=== PATIENT | male | born 1980 | race Caucasian/White ===

== ENCOUNTER 2020-05-13 22:36 | Inpatient (IN) | payer OTHER ==
--- NOTE | 2020-05-13 23:28 | HP ---
COWS - Scale Resting Pulse: 1= IL 81-100 Sweatin=Flushed/Facial Moisture Restless Observation: 1= Difficult to Sit Still Pupil Size: 1= Pupils >than Normal Bone or Joint Aches: 4=Acute Joint/Muscle Pain Runny Nose/ Eye Tearin= Runny Nose/Eyes GI Upset > 30mins: 1= Stomach Cramp Tremor Observation: 4= Gross Tremor/Twitching Yawning Observation: 1= 1-2x During Session Anxiety or Irritability: 4=Extreme Anxiety Goose Flesh Skin: 0=Smooth Skin COWS Score: 21 CIWA Score - Admission Criteria [facility]AS[facility] Guidelines: Admission for Medically Managed Detox: Requires at least one of the followin. CIWA greater than 12 2. Seizures within the past 24 hours 3. Delirium tremens within the past 24 hours 4. Hallucinations within the past 24 hours 5. Acute intervention needed for co occurring medical disorder 6. Acute intervention needed for co occurring psychiatric disorder 7. Severe withdrawal that cannot be handled at a lower level of care (continued vomiting, continued diarrhea, abnormal vital signs) requiring intravenous medication and/or fluids 8. Admission [facility] Chief Complaint: Heroin withdrawal symptoms Allergies/Adverse Reactions: Allergies Allergy/AdvReac Type Severity Reaction Status Date / Time No Known Allergies Allergy Verified 05/13/20 23:27 History of Present Illness: 40 years old male witha long history of opioid dependence is seeking admission to detox. This is his first admission to [facility] and he reports that his last admission was at [facility]. He reports that he uses 20 bags daily. He denies medical history, psych. history and suicidal ideation at this time. He is employed as a laborer plumbing, lives alone in [place] and denies legal issues. He reports that he overdosed 5 months ago. Exam Limitations: No Limitations - Ebola screening Have you traveled outside of the country in the last 21 days: No Have you had contact with anyone from an Ebola affected area: No Have you been sick,other than usual withdrawal symptoms: No Do you have a fever: No - Review of Systems Constitutional: Chills, Loss of Appetite, Malaise, Night Sweats, Changes in sleep EENT: reports: Nose Congestion Respiratory: reports: No Symptoms reported Cardiac: reports: No Symptoms Reported GI: reports: Nausea, Poor Appetite, Poor Fluid Intake, Vomiting (x 2), Abdominal cramping : reports: No Symptoms Reported Musculoskeletal: reports: Muscle Pain Integumentary: reports: Dryness, Flushing Neuro: reports: Tremors Endocrine: reports: No Symptoms Reported Hematology: reports: No Symptoms Reported Psychiatric: reports: Mood/Affect Appropiate, Orientated x3, Agitated, Anxious Other Systems: Reviewed and Negative Patient History - Patient Medical History Hx Anemia: No Hx Asthma: No Hx Chronic Obstructive Pulmonary Disease (COPD): No Hx Cancer: No Hx Cardiac Disorders: No Hx Congestive Heart Failure: No Hx Hypertension: No Hx Hypercholesterolemia: No Hx Pacemaker: No HX Cerebrovascular Accident: No Hx Seizures: No Hx Dementia: No Hx Diabetes: No Hx Gastrointestinal Disorders: No Hx Liver Disease: No Hx Genitourinary Disorders: No Hx Sexually Transmitted Disorders: No Hx Renal Disease (ESRD): No Hx Thyroid Disease: No Hx Human Immunodeficiency Virus (HIV): No (Negative 2020) Hx Hepatitis C: No Hx Depression: No Hx Suicide Attempt: No (Denies suicidal ideation at this time) Hx Bipolar Disorder: No Hx Schizophrenia: No - Patient Surgical History Past Surgical History: No - PPD History Previous Implant?: Yes Documented Results: Negative w/o proof Implanted On Prior [facility] Admission?: No PPD to be Administered?: Yes - Reproductive History Patient is a Female of Child Bearing Age (11 -55 yrs old): No (Male) - Smoking Cessation Smoking history: Never smoked Have you smoked in the past 12 months: No Hx Chewing Tobacco Use: No Initiated information on smoking cessation: No - Substance & Tx. History Hx Substance Use: Yes Substance Use Type: Heroin, Marijuana Hx Substance Use Treatment: Yes ([facility].) - Substances abused Heroin Frequency: Daily Amount used: 20 bags Age of first use: 20 Date of last use: 05/13/20 Admission Physical Exam BHS - Vital Signs Vital Signs: Vital Signs - 24 hr 05/13/20 22:57 Temperature 98.3 F Pulse Rate 81 Respiratory 16 Rate Blood Pressure 142/81 - Physical General Appearance: Yes: Severe Distress, Tremorous, Irritable, Sweating, Anxious HEENTM: Yes: Within Normal Limits Respiratory: Yes: Lungs Clear, Normal Breath Sounds, No Respiratory Distress Neck: Yes: Within Normal Limits Breast: Yes: Breast Exam Deferred Cardiology: Yes: Regular Rhythm, Regular Rate Abdominal: Yes: Normal Bowel Sounds Genitourinary: Yes: Within Normal Limits Back: Yes: Normal Inspection Musculoskeletal: Yes: Muscle Pain Extremities: Yes: Tremors Neurological: Yes: Within Normal Limits, Alert, Normal Mood/Affect Integumentary: Yes: Warm - Diagnostic (1) Opioid dependence with withdrawal Current Visit: Yes Status: Acute (2) Sedative, hypnotic or anxiolytic dependence with withdrawal with perceptual disturbance Current Visit: Yes Status: Acute Cleared for Admission S - Detox or Rehab [facility] Level of Care: Medically Managed Detox Regimen/Protocol: Methadone Claeared for Rehab Admission: No Breathalyzer - Breathalyzer Breathalyzer: 0 Urine Drug Screen - Test Device Lot number: [id number] Expiration date: 05/29/22 - Control Is test valid?: Yes - Results Drug screen NEGATIVE: No Urine drug screen results: THC-Marijuana, FEN-Fentanyl, MOP-Opiates Inpatient Rehab Admission - Rehab Decision to Admit Inpatient rehab admission?: No
[2020-05-13] MEDS ORDERED: NICOTINE POLACRILEX 2 MG GUM BUC PRN (23:41)
[2020-05-13] MEDS ORDERED: IBUPROFEN 400 MG TABLET (FP) PO PRN (23:41)
[2020-05-13] MEDS ORDERED: MENTHOL/PHENOL 1 EACH UD MM PRN (23:41)
[2020-05-13] MEDS ORDERED: MAG HYDROX/AL HYDROX/SIMETH 30 ML UNIT-DOSE CUP PO PRN (23:41)
[2020-05-13] MEDS ORDERED: BISMUTH SUBSALICYLATE 524 MG/30 ML UD PO PRN (23:41)
[2020-05-13] MEDS ORDERED: ONDANSETRON *ODT* 4 MG TABLET SL PRN (23:41)
[2020-05-13] MEDS ORDERED: MAGNESIUM CITRATE 300 ML BOTTLE PO PRN (23:41)
[2020-05-13] MEDS ORDERED: cloNIDine HCL 0.1 MG TABLET PO PRN (23:41)
[2020-05-13] MEDS ORDERED: MAGNESIUM HYDROX 2400MG/30ML ORAL SUSPENSION 30 ML CUP PO PRN (23:41)
[2020-05-13] MEDS ORDERED: ACETAMINOPHEN 325 MG TABLET (FP) PO PRN ×2 (23:41)
[2020-05-13] MEDS ORDERED: METHADONE HCL 10 MG TABLET (FOR DETOX USE ONLY) PO ONE (23:50)
[2020-05-14] MEDS ORDERED: METHADONE HCL 10 MG TABLET (FOR DETOX USE ONLY) ONE (09:44)
[2020-05-14] MEDS ORDERED: METHADONE HCL 5 MG TABLET (FOR DETOX USE ONLY) ONE (09:44)
[2020-05-14] MEDS ORDERED: METHADONE (DETOX) 20 MG, METHADONE (DETOX) 5 MG PO ONE (10:00)
[2020-05-14] MEDS: NICOTINE 21 MG/24 HOURS TOPICAL PATCH TD SCH (10:39)
[2020-05-14] MEDS: METHOCARBAMOL 500 MG TABLET PO PRN (10:39)
[2020-05-14] MEDS: PRENATAL VITAMINS W/ FOLIC ACID TABLET (FP) PO SCH (10:39)
[2020-05-14 10:46] LABS: ALBUMIN 3.6 g/dl (3.4-5.0); BLOOD UREA NITROGEN 7.3 mg/dL (7-18); CALCIUM 9.2 mg/dL (8.5-10.1); CREATININE 0.6 mg/dL (0.55-1.3); POTASSIUM 3.9 mmol/L (3.5-5.1); TOT PROT 7.8 g/dl (6.4-8.2)
[2020-05-14 10:53] LABS: BILIRUBIN,TOTAL 0.7 mg/dL (0.2-1)
[2020-05-14 10:54] LABS: HEMATOCRIT 41.3 % (35.4-49); HEMOGLOBIN 13.9 GM/dL (11.7-16.9); MCH 29.6 pg (25.7-33.7); MCHC 33.7 g/dl (32.0-35.9); MEAN CELL VOLUME 87.8 fl (80-96); MEAN PLT VOLUME 7.3 fl (7.5-11.1); PLATELET COUNT 345 K/MM3 (134-434); RDW 13.7 % (11.9-15.9); WHITE BLOOD COUNT 6.2 K/mm3 (4.0-10.0)
--- NOTE | 2020-05-14 11:06 | PN ---
BHS COWS - Scale Resting Pulse: 0= SD 80 or Below Sweatin= Chills/Flushing Restless Observation: 0= Sits Still Pupil Size: 1= Pupils >than Normal Bone or Joint Aches: 2= Severe Diffuse Aches Runny Nose/ Eye Tearin= Runny Nose/Eyes GI Upset > 30mins: 2= Nausea/Diarrhea Tremor Observation of Outstretched Hands: 2= Slight Tremor Visible Yawning Observation: 2= >3x During Session Anxiety or Irritability: 2=Irritable/Anxious Goose Flesh Skin: 3=Piloerection COWS Score: 17 BHS Progress Note (SOAP) Subjective: 40 years old male admitted on 05/13/20 for opiate withdrawal sx management treating with methadone detox regiment mr levi was taking suboxone 4-1 mg sl bid last 30days filled on 01/24/20 mr levi was taking xanax 2 mg po qid last monthly filled on 11/19/19 negative benzo urine tox upon admission mr levi ate 10% of breakfast continue ensure supplement mr levi denies seizure valium 5 mg po prn and neurontin 100 mg po prn due to past history of xanax user Objective: 05/14/20 11:08 Vital Signs - 24 hr 05/13/20 05/14/20 05/14/20 22:57 00:11 07:04 Temperature 98.3 F 96.9 F L 97.5 F L Pulse Rate 81 84 51 L Respiratory 16 18 16 Rate Blood Pressure 142/81 110/62 93/61 O2 Sat by Pulse 97 99 Oximetry (%) 05/14/20 09:04 Temperature 98.6 F Pulse Rate 56 L Respiratory 18 Rate Blood Pressure 96/60 O2 Sat by Pulse Oximetry (%) Laboratory Tests 05/14/20 05/14/20 05/14/20 08:00 08:00 08:00 WBC 6.2 RBC 4.70 Hgb 13.9 Hct 41.3 MCV 87.8 MCH 29.6 MCHC 33.7 RDW 13.7 Plt Count 345 MPV 7.3 L Sodium 138 Potassium 3.9 Chloride 103 Carbon Dioxide 27 Anion Gap 8 BUN 7.3 Creatinine 0.6 Est GFR (CKD-EPI)AfAm 145.76 Est GFR (CKD-EPI)NonAf 125.77 Random Glucose 113 H Calcium 9.2 Total Bilirubin 0.7 AST 85 H ALT 130 H Alkaline Phosphatase 117 Total Protein 7.8 Albumin 3.6 Syphilis Serology Non-reactive covid pending Assessment: 05/14/20 11:08 opiate withdrawal Plan: methadone regiment
[2020-05-14] MEDS ORDERED: GABAPENTIN 100 MG CAPSULE PO PRN (11:09)
[2020-05-14] MEDS ORDERED: diazePAM 5 MG TABLET PO PRN (17:00)
[2020-05-14] MEDS: MELATONIN 5 MG TABLETS PO SCH (22:28)
[2020-05-14] MEDS: THIAMINE HCL 100 MG TABLET (FP) PO SCH (22:29)
[2020-05-15] MEDS ORDERED: METHADONE HCL 10 MG TABLET (FOR DETOX USE ONLY) PO ONE (10:00)
[2020-05-15] MEDS: NICOTINE 21 MG/24 HOURS TOPICAL PATCH TD SCH (10:00)
[2020-05-15] MEDS: PRENATAL VITAMINS W/ FOLIC ACID TABLET (FP) PO SCH (10:00)
[2020-05-15] MEDS ORDERED: TRIMETHOBENZAMIDE HCL 200MG/2ML INJ IM PRN (10:48)
--- NOTE | 2020-05-15 14:23 | PN ---
BHS COWS - Scale Resting Pulse: 1= DC 81-100 Sweatin= No chills or Flushing Restless Observation: 1= Difficult to Sit Still Pupil Size: 1= Pupils >than Normal Bone or Joint Aches: 2= Severe Diffuse Aches Runny Nose/ Eye Tearin= Runny Nose/Eyes GI Upset > 30mins: 3= Vomiting/Diarrhea Tremor Observation of Outstretched Hands: 2= Slight Tremor Visible Yawning Observation: 1= 1-2x During Session Anxiety or Irritability: 2=Irritable/Anxious Goose Flesh Skin: 0=Smooth Skin COWS Score: 15 [facility] Progress Note (SOAP) Subjective: alert,irritable,anxious,interrupted sleep,tremor,pain in the body,back,v omiting,poor appetite Objective: 05/15/20 18:01 Vital Signs Temperature 98.2 F 05/15/20 16:50 Pulse Rate 83 05/15/20 16:50 Respiratory Rate 18 05/15/20 16:50 Blood Pressure 119/58 L 05/15/20 16:50 O2 Sat by Pulse Oximetry (%) 96 05/15/20 12:39 Assessment: 05/15/20 18:02 withdrawal symptom Plan: continue detox methadone regimen,valium 10 mgs po q4hrs prn for withdrawal for 72 hrs,close monitoring
[2020-05-15] MEDS: METHOCARBAMOL 500 MG TABLET PO PRN ×2 (15:03→21:55)
[2020-05-15] MEDS: diazePAM 5 MG TABLET PO PRN ×2 (15:03→21:55)
[2020-05-15] MEDS: MELATONIN 5 MG TABLETS PO SCH (21:55)
[2020-05-15] MEDS: THIAMINE HCL 100 MG TABLET (FP) PO SCH (21:55)
[2020-05-15 22:49] VITALS: BP 93/55; PULSE 64; TEMP 99.1
[2020-05-16] MEDS ORDERED: METHADONE (DETOX) 10 MG, METHADONE (DETOX) 5 MG PO ONE (10:00)
--- NOTE | 2020-05-16 10:40 | DS ---
[facility] Detox Discharge Summary Admission Date: 05/13/20 Discharge Date: 05/16/20 - History Present History: Opioid Dependence Additional Comments: 40 years old male was admitted on 05/13/20 for opiate withdrawal sx management treated with methadone detox regiment received nurse reports that mr levi had anger outburst episode threatening staff by throwing food on the floor and verbally aggressive toward staff security had been called and mr levi was been escorted off the detox unit Pertinent Past History: time for discharge 35 minutes for chart reviewed I have not seen nor evaluated mr levi prior to the discharge event - Physical Exam Results Vital Signs: Vital Signs Temperature 99.1 F 05/15/20 20:30 Pulse Rate 64 05/15/20 20:30 Respiratory Rate 18 05/15/20 20:30 Blood Pressure 93/55 L 05/15/20 20:30 O2 Sat by Pulse Oximetry (%) 98 05/15/20 20:30 Pertinent Admission Physical Exam Findings: methadone regiment Laboratory Tests 05/14/20 05/14/20 05/14/20 08:00 08:00 08:00 WBC 6.2 RBC 4.70 Hgb 13.9 Hct 41.3 MCV 87.8 MCH 29.6 MCHC 33.7 RDW 13.7 Plt Count 345 MPV 7.3 L Sodium 138 Potassium 3.9 Chloride 103 Carbon Dioxide 27 Anion Gap 8 BUN 7.3 Creatinine 0.6 Est GFR (CKD-EPI)AfAm 145.76 Est GFR (CKD-EPI)NonAf 125.77 Random Glucose 113 H Calcium 9.2 Total Bilirubin 0.7 AST 85 H ALT 130 H Alkaline Phosphatase 117 Total Protein 7.8 Albumin 3.6 Syphilis Serology Non-reactive lab noted covid pending - Treatment Hospital Course: Detox Protocol Followed Patient has Accepted a Rehab Referral to: community support resources - Diagnosis (1) Substance induced mood disorder Status: Suspected (2) Opioid dependence with withdrawal Status: Acute - AMA Did Patient Leave Against Medical Advice: Yes
[2020-05-17] MEDS ORDERED: METHADONE HCL 10 MG TABLET (FOR DETOX USE ONLY) PO ONE (10:00)
[2020-05-18] MEDS ORDERED: METHADONE HCL 5 MG TABLET (FOR DETOX USE ONLY) PO ONE (06:00)
== END 2020-05-16 07:56 | disposition left against medical advice (07) | DRG 770 ==
LOC: YASAS 22:36 → Y3N 23:34
PROVIDERS: ADMIT Allergy & Immunology; ATTEND Allergy & Immunology
PROC: HZ2ZZZZ Detoxification Services for Substance Abuse Treatment (ICD-10-PCS; principal; 2020-05-13)
DX: F11.23 Opioid dependence with withdrawal (principal); F13.232 Sedative, hypnotic or anxiolytic dependence with withdrawal with perceptual disturbance; F19.24 Other psychoactive substance dependence with psychoactive substance-induced mood disorder
CPT/HCPCS: 36415; 80053; 85027; 86780; U0003